=== PATIENT | female | born 1985 | race Caucasian/White ===

== ENCOUNTER 2017-03-14 13:44 | Emergency (ER) | payer OTHER ==
[~2017-03-14] VITALS: Ht 157.5 cm; Wt 57.1 kg
[2017-03-14 16:05] VITALS: BP 105/64
== END 2017-03-14 16:07 | disposition home or self-care (01) ==
LOC: ED 15:50
DX: K64.8 Other hemorrhoids (principal)
CPT/HCPCS: 99284